=== PATIENT | female | born 1985 | race African-American/Black ===

== ENCOUNTER 2016-08-30 14:33 | Emergency (ER) | payer MEDICAID ==
[~2016-08-30] VITALS: Ht 175.3 cm; Wt 60.0 kg
[2016-08-30 14:35] VITALS: BP 151/86; PULSE 84; RESP 12; TEMP 99; O2SAT 100
--- NOTE | 2016-08-30 14:37 | PD ---
Physical Exam Date Seen by Provider: August 30, 2016 Time Seen by Provider: 14:35 Narrative 30 YOBF C/O WEAKNESS. N/V AT NIGHT. LMP DEPO 08/12/16. NO F/C/ABD PAIN OR URINARY PROBLEMS VVS WAITING FOR BED PLACEMENT MDM Medical Record Reviewed: Yes Supervised Visit with BLANKA: No Scripts No Active Prescriptions or Reported Meds Juanpablo Regan August 30, 2016 14:37
--- NOTE | 2016-08-30 14:40 | PD ---
HPI Chief Complaint: General Weakness Time Seen by Provider: 14:40 Travel History International Travel<30 days: No Contact w/Intl Traveler<30days: No Traveled to known affect area: No History of Present Illness HPI 30-year-old female came to the emergency room with history of nausea, vomiting and feeling weak for past 2 days. She says she vomited once this morning. One week ago she was having some diarrhea but that lasted for couple days only. No history of any sick contacts. Vital signs were otherwise stable. She is otherwise a healthy person. She had some vague abdominal pain but currently does not have any. She says she had some chills this morning but is afebrile here. [facility] Past Medical History Narrative Medical List of her past medical, surgical, social and family history is reviewed from the nursing note. 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 Comments List of her allergies reviewed from the nursing note. Reported Meds & Prescriptions Reported Meds & Active Scripts Active Zofran Odt (Ondansetron Odt) 4 Mg Tab 4 Mg SL Q6HR PRN Narrative Medication List of her home medications reviewed from the nursing note. Review of Systems Except as stated in HPI: all other systems reviewed are Neg Physical Exam Narrative GENERAL: Awake, alert, moderate distress SKIN: Focused skin assessment warm/dry. HEAD: Atraumatic. Normocephalic. EYES: Pupils equal and round. No scleral icterus. No injection or drainage. ENT: No nasal bleeding or discharge. Mucous membranes pink and moist. NECK: Trachea midline. No JVD. CARDIOVASCULAR: Regular rate and rhythm. No murmur appreciated. RESPIRATORY: No accessory muscle use. Clear to auscultation. Breath sounds equal bilaterally. GASTROINTESTINAL: Abdomen soft, non-tender, nondistended. Hepatic and splenic margins not palpable. MUSCULOSKELETAL: No obvious deformities. No clubbing. No cyanosis. No edema. NEUROLOGICAL: Awake and alert. No obvious cranial nerve deficits. Motor grossly within normal limits. Normal speech. PSYCHIATRIC: Appropriate mood and affect; insight and judgment normal. Data Data Last Documented VS Vital Signs Date Time Temp Pulse Resp B/P Pulse Ox O2 Delivery O2 Flow Rate FiO2 08/30/16 16:52 Room Air 08/30/16 14:35 99.0 84 12 151/86 100 Orders Basic Metabolic Panel (Bmp) (08/30/16 14:51) Complete Blood Count With Diff (08/30/16 14:51) Urinalysis - C+S If Indicated (08/30/16 14:51) Iv Access Insert/Monitor (08/30/16 14:51) Ecg Monitoring (08/30/16 14:51) Oximetry (08/30/16 14:51) Ondansetron Inj (Zofran Inj) (08/30/16 15:00) Sodium Chlor 0.9% 1000 Ml Inj (Ns 1000 M (08/30/16 14:51) Sodium Chloride 0.9% Flush (Ns Flush) (08/30/16 15:00) Influenzae A/B Antigen (08/30/16 14:54) Labs Laboratory Tests Test 08/30/16 08/30/16 15:15 15:19 Urine Color YELLOW Urine Turbidity CLEAR Urine pH 5.5 Urine Specific Prentiss 1.013 Urine Protein NEG mg/dL Urine Glucose (UA) NEG mg/dL Urine Ketones 10 mg/dL Urine Occult Blood SMALL Urine Nitrite NEG Urine Bilirubin NEG Urine Urobilinogen LESS THAN 2.0 MG/DL Urine Leukocyte Esterase SMALL Urine RBC 1 /hpf Urine WBC 3 /hpf Urine Squamous Epithelial 1 /hpf Cells Urine Mucus FEW /lpf Microscopic Urinalysis Comment CULT NOT INDICATED White Blood Count 5.6 TH/MM3 Red Blood Count 4.56 MIL/MM3 Hemoglobin 14.0 GM/DL Hematocrit 42.8 % Mean Corpuscular Volume 93.7 FL Mean Corpuscular Hemoglobin 30.6 PG Mean Corpuscular Hemoglobin 32.7 % Concent Red Cell Distribution Width 12.7 % Platelet Count 237 TH/MM3 Mean Platelet Volume 8.1 FL Neutrophils (%) (Auto) 55.9 % Lymphocytes (%) (Auto) 35.3 % Monocytes (%) (Auto) 5.6 % Eosinophils (%) (Auto) 2.7 % Basophils (%) (Auto) 0.5 % Neutrophils # (Auto) 3.1 TH/MM3 Lymphocytes # (Auto) 2.0 TH/MM3 Monocytes # (Auto) 0.3 TH/MM3 Eosinophils # (Auto) 0.1 TH/MM3 Basophils # (Auto) 0.0 TH/MM3 CBC Comment DIFF FINAL Differential Comment Sodium Level 139 MEQ/L Potassium Level 3.5 MEQ/L Chloride Level 108 MEQ/L Carbon Dioxide Level 21.2 MEQ/L Anion Gap 10 MEQ/L Blood Urea Nitrogen 10 MG/DL Creatinine 0.90 MG/DL Estimat Glomerular Filtration 90 ML/MIN Rate Random Glucose 74 MG/DL Calcium Level 9.0 MG/DL MDM Medical Decision Making Medical Screen Exam Complete: Yes Emergency Medical Condition: Yes Medical Record Reviewed: Yes Differential Diagnosis , acute gastritis, viral illness, UTI Narrative Course 3:34 PM awaiting for the blood test and UA to be done and resulted. Patient is getting 1 L of IV fluid bolus. 4:34 PM blood test results of back and they're within normal limit. I will discharge her home. Procedures EKG Prior to Arrival: No Diagnosis Primary Impression: Viral illness Additional Impression: Acute gastritis Qualified Code: K29.00 - Acute gastritis without hemorrhage, unspecified gastritis type Referrals: Primary Care Physician 3 days Additional Instructions: Please return to the ER if the condition worsens or any other new concerns. Otherwise follow-up with your primary care in couple days. Take the medication as per the prescription direction. Med/Other Pt SpecificInfo: Prescription(s) given Scripts Ondansetron Odt (Zofran Odt)4 Mg Tab4 Mg SL Q6HR PRN (Nausea/Vomiting) #15 TAB Ref 0 Prov:Suzy Robins MD 08/30/16 Disposition: 01 DISCHARGE HOME Condition: Stable Suzy Robins MD August 30, 2016 14:40
[2016-08-30] MEDS ORDERED: SODIUM CHLOR 0.9% 1000 ML INJ 1,000 ML IV SCH (14:51)
[2016-08-30] MEDS ORDERED: ONDANSETRON HCL 4 MG/2 ML VIAL IVP ONE (15:00)
[2016-08-30] MEDS ORDERED: SODIUM CHLORIDE 0.9% FLUSH 10 ML FLUSH IV FLUSH PRN (15:00)
[2016-08-30 15:44] LABS: AUTOMATED NEUTROPHIL # 3.1 TH/MM3 (1.8-7.7); BASOPHIL % 0.5 % (0.0-2.0); EOSINOPHIL # 0.1 TH/MM3 (0-0.4); EOSINOPHIL % 2.7 % (0.0-4.0); HEMATOCRIT 42.8 % (35.0-46.0); HEMO FLAGS DIFF FINAL; LYMPH % 35.3 % (9.0-44.0); MEAN CELL VOLUME 93.7 FL (80.0-100.0); MEAN CORPUSCULAR HEMOGLOBIN 30.6 PG (27.0-34.0); MEAN CORPUSCULAR HGB CONC 32.7 % (32.0-36.0); MONO % 5.6 % (0.0-8.0); NEUT % 55.9 % (16.0-70.0); PLATELET COUNT 237 TH/MM3 (150-450); RED BLOOD COUNT 4.56 MIL/MM3 (4.00-5.30); RED CELL DISTRIBUTION WIDTH 12.7 % (11.6-17.2); WHITE BLOOD COUNT 5.6 TH/MM3 (4.0-11.0)
[2016-08-30 16:06] LABS: BLOOD, URINE SMALL (NEG); GLUCOSE,URINE NEG (NEG); KETONE, URINE 10 mg/dL (NEG); MUCUS URINE FEW /lpf (OCC); NITRITE,URINE NEG (NEG); PH, URINE 5.5 (5.0-8.5); SQUAMOUS EPITHELIAL CELL URINE 1 /hpf (0-5); URINE COLOR YELLOW (YELLW/STRAW)
[2016-08-30 16:10] LABS: COMMENT (UR) CULT NOT INDICATED; CULTURE IF INDICATED CULT NOT INDICATED
[2016-08-30 16:20] LABS: BICARBONATE 21.2 MEQ/L (21.0-32.0); POTASSIUM 3.5 MEQ/L (3.5-5.1)
[2016-08-30] MEDS ORDERED: ZOFR4TAB3 SL (16:35)
== END 2016-08-30 17:50 | disposition home or self-care (01) ==
LOC: NEPD 14:33
DX: B34.9 Viral infection, unspecified (principal); K29.00 Acute gastritis without bleeding
CPT/HCPCS: 80048; 81001; 85025; 87804; 96361; 96374; 99284; J2405; J7030